=== PATIENT | female | born 1960 | race Caucasian/White ===

== ENCOUNTER 2019-12-04 13:10 | Emergency (ER) | payer OTHER, SELFPAY ==
--- NOTE | 2019-12-04 13:18 | ED.GENADULT ---
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 Patient states it does burn at times to the area when she urinates. Patient states it does not hurt when she is sitting at this time. Denies taking anything for the symptoms. Patient states that her about a year and a half ago and since then she has not been sexually active with any partners. Denies any discharge coming from the area. Patient denies any fevers, body aches or chills. Related Data Home Medications Medication Instructions Recorded Confirmed levothyroxine 12/04/19 Allergies Allergy/AdvReac Type Severity Reaction Status Date / Time No Known Allergies Allergy Unverified 06/21/19 10:42 Review of Systems Review of Systems: Narrative: CONSTITUTIONAL: Denies fever, chills, or sweats. EYES: Denies visual changes, redness, or discharge. ENT: Denies rhinorrhea, congestion, sore throat, or otalgia. CARDIOVASCULAR: Denies chest pain, palpitations, or edema. RESPIRATORY: Denies cough or dyspnea. GASTROINTESTINAL: Denies abdominal pain, nausea, vomiting, or diarrhea. GENITOURINARY: Denies dysuria or hematuria. SKIN: Denies rash or itching. Possible bump on groin x3 to 4 days. MUSCULOSKELETAL: Denies back pain, joint pain, or myalgia. NEUROLOGIC: Denies headache, numbness, or weakness. PSYCHIATRIC: Denies anxiety or depression. PMFSH Social History Social History Smoking status: Never smoker Alcohol intake: current Drinks per week: 1 Comments At the time of my signature I agree with nursing past medical history, surgical, social, and family history. There is no relevant family history pertinent to the presenting complaint. Exam Narrative: Exam Narrative: GENERAL: Well-appearing, well-nourished, and in no acute distress. HEAD: Normocephalic, atraumatic. EYES: PERRLA and EOMI. ENT: Nares clear, no rhinorrhea or epistaxis. Mucous membranes moist. NECK: Supple. No lymphadenopathy CHEST: Clear to auscultation. No respiratory distress. HEART: Regular rate and rhythm. No murmur heard. Normal peripheral pulses. ABDOMEN: Soft, nontender, nondistended, normal active bowel sounds. EXTREMITIES: Normal range of motion. No edema. : Patient has small raised pimple-like flesh-colored cyst noted on the right labia. There is no swelling of the labia. There is no surrounding erythema, no warmth. There is no discharge coming from the area. No tenderness noted on palpation. SKIN: Warm, dry, no rash. NEURO: No focal deficits. Alert and oriented x3. Course Vital Signs Vital signs: Vital Signs Temperature 37.2 C 12/04/19 13:27 Pulse Rate 97 12/04/19 13:27 Respiratory Rate 16 12/04/19 13:27 Blood Pressure 135/61 12/04/19 13:27 Pulse Oximetry 98 12/04/19 13:27 Temperature 37.2 C 12/04/19 13:27 Pulse Rate 97 12/04/19 13:27 Respiratory Rate 16 12/04/19 13:27 Blood Pressure 135/61 12/04/19 13:27 Pulse Oximetry 98 12/04/19 13:27 Vital signs reviewed. Medical Decision Making Differential Diagnosis Differential Diagnosis: Differential diagnosis: Abscess, cellulitis, hidradenitis, laceration, puncture wound. Discussed with patient and sister that this does appear to be just a very small little pimple-like cyst most likely due to a hair follicle which is fairly common. Discussed them that they can have her do some warm Epson salt soaks, put some antibiotic ointment over the area to decrease risk of infection. Discussed with them that they this may pop on its own however it is very im
[2019-12-04 13:27] VITALS: BP 135/61; PULSE 97; RESP 16; TEMP 37.2; O2SAT 98
== END 2019-12-04 13:42 | disposition home or self-care (01) ==
PROVIDERS: Emergency Provider Nurse Practitioner Family; PCP Internal Medicine
DX: L73.8 Other specified follicular disorders (principal); E03.9 Hypothyroidism, unspecified
CPT/HCPCS: 99211; G0463

== ENCOUNTER 2021-08-20 01:16 | Day surgery (SDC) | payer BC, SELFPAY ==
--- NOTE | 2021-07-30 09:52 | PC.NURSE ---
Report to the Outpatient Waiting Room, entrance under the green pavilion located off [facility], at time _0600__ on date ___08/07/21____. OR Time: _729__. - You will be asked a series of questions to screen for COVID 19 for your protection. - A mask is required within the hospital. - No visitors are allowed at this time. Preoperative COVID Testing Requirements: No COVID Test needed if: (proof is required; if not received patient will have Rapid Test prior to entry) - Patient has received COVID Vaccine at least 14 days prior to procedure date or - Patient has positive COVID test result within last 90 days of surgery date. COVID Test needed if above criteria is not met If not COVID vaccinated a COVID test must be conducted within 72 hours of surgery and patient is asked to isolate self from time of testing until procedure. You will go to the [facility] for your COVID testing. The [facility] is located at the corner of [address] [facility]. You will only be called if COVID results are positive and your surgeon may reschedule your elective surgery date. Patients may have clear liquids (water, carbonated beverages, clear teas, apple juice) until 3 hours prior to surgery with a maximum of 20 ounces. - No food from midnight until time of surgery - Infants may have breast milk until 4 hours before surgery, formula 6 hours prior to surgery. - Children will be allowed to drink immediately following surgery. If applicable, please bring a bottle or sippy cup to assist with drinking. Juice, water, soda, and popsicles are readily available. For infants on formula, please bring formula the day of surgery. Pacifiers are allowed. Take the following medications with a SIP of water the morning of surgery: MIRTAZAPINE Medications to discontinue per physician NONE Date to take last dose NONE Please no make-up, nail albanian, hairspray, perfume, deodorant, or body powder the day of surgery. No jewelry (including any body piercings) or valuables the day of surgery, leave them at home. Please take a shower or bath the night before, or the morning of, surgery with an antibacterial soap. Wear comfortable, loose fitting clothing. Children are encouraged to wear pajamas. - Jewelry must be removed prior to entering the operating room. Rings and piercings that are not removed may be cut off. - The hospital will not accept responsibility for valuables. - Please leave all valuables, including medications, at home the day of surgery. If you are going home after surgery, a licensed diesel pile driver operator must drive you home. - NO public transportation without another adult. - We recommend that an adult stay with you for 24 hours following discharge. - We also recommend that you do not drive, make important decision, drink alcoholic beverages, or take any drugs that were not prescribed by your health care provider for at least 24 hours after your discharge time. For Pediatric surgeries, we recommend two adults accompany the child home (only one inside the building at this time). Follow any additional instructions given to you from your surgeon. Telephone instructions given to __SUSU CAMPOS and asked if any additional questions and then verbalized understanding. Patient advised to call surgeon office or pre surgery nurse liaison [phone] if any additional questions.
[2021-08-20] VITALS (7 sets, daily range): BP systolic 124–168; BP diastolic 73–98; PULSE 69–86; RESP 12–20; TEMP 36.2–36.9; O2SAT 99–100
--- NOTE | 2021-08-20 12:10 | P.HP_ITS ---
H&P: HPI History of Present Illness Date/Time: 08/20/21 12:10 Ms. Morales presents today with her sister at the request of Dr. Mustafa for evaluation of a posterior neck mass. She reports the mass being present for a few years , and over the last two months has increased notably in size. The patient reports history of foul smelling drainage from the mass, but denies current drainage or surrounding redness. 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 Gender identity (if verbalized by the patient): Female Meds Home Medications and Allergies Home Medications Medication Instructions Recorded Confirmed Type mirtazapine 15 mg PO DAILY 07/30/21 07/30/21 History Allergies Allergy/AdvReac Type Severity Reaction Status Date / Time lincomycin [From Lincocin] Allergy Rash Verified 06/30/21 13:43 Exam Const: General: cooperative, comfortable and no acute distress Nutritional Appearance: obese Orientation/consciousness: patient oriented x3 Limitations: no limitations HENMT: Head: normal to inspection and normocephalic Neck: Other: posterior neck mass - 6x5 cm, well circumscribed, soft, no s/s active infection Resp: Auscultation: clear to auscultation bilaterally Cardio: Rate: regular rate Rhythm: regular rhythm Assessment and Plan Assessment and plan (1) Palpable mass of neck: Code(s): R22.1 - Localized swelling, mass and lump, neck Status: Acute Assessment and Plan: will setup for excisional biopsy
--- NOTE | 2021-08-20 12:13 | WPDHPUPDATE1 ---
History and Physical Update Update Date/Time: 08/20/21 12:13 History and Physical has been reviewed, including an updated exam of the patient. There are NO changes in the patient's condition. Risks, benefits, and alternatives have been discussed and questions answered. Patient agrees to proceed with procedure.
[2021-08-20] MEDS: LACTATED RINGERS 1,000 ML 30 ML IV CONT (12:20)
--- NOTE | 2021-08-20 13:22 | P.PNAN_ITS ---
Anes - Initial Pre Proc Eval Procedure: Operation Date: 08/20/21 13:30 Proposed Procedures p Excisional Biopsy Left Posterior Neck Mass - Vera Welch MD Date/Time: 08/20/21 13:22 Surgeon: Vera Welch MD Pre Op Diagnosis: neck mass 6x5 cm Patient Data Age: 61 Gender: F Height: 1.63 m Weight: 62 kg Last Vital Signs Temp 36.9 C 08/20/21 11:56 Pulse 77 08/20/21 11:56 Resp 20 08/20/21 11:56 BP 124/78 08/20/21 11:56 Pulse Ox 99 08/20/21 11:56 Allergies Allergy/AdvReac Type Severity Reaction Status Date / Time lincomycin [From Lincocin] Allergy Severe Hives Verified 08/20/21 12:17 Home Medications Medication Instructions Recorded Confirmed Type mirtazapine 15 mg PO DAILY 07/30/21 07/30/21 History Patient hx anesthesia problems: none Family hx anesthesia problems: none Results Review: All pre-operative results and documents have been reviewed as part of the pre-operative evaluation. [facility] Past Medical History Medical History Anxiety Family History Family History Father Esophageal cancer Other Allergy Cancer Diabetes mellitus Heart disease Hypertension Social History Social History Smoking packs per day: 1 Smoking cigarettes per day: 20.0 Years smoked: 20 Smoking pack-years: 20.00 Smoking status: Former smoker Alcohol intake: current Drinks per week: 10 Substance use: never Living arrangements: alone Additional occupation/education comments: [employer] Gender identity (if verbalized by the patient): Female Anes - Eval Final PreProcedure Day of Procedure 08/20/21 13:22 Patient weight: normal Heart: regular rate and rhythm Lungs: decreased breath sounds Airway: Mallampati scale class II Neurological: other (alert) Last oral intake: >/= 8 hours ASA classification: II Emergent: no Anesthetic plan: proceed Anesthesia type and monitoring: general LMA and standard monitoring Results Review: All pre-operative results and documents have been reviewed as part of the pre-operative evaluation. Informed Consent: The patient's anesthetic plan and its attendant risks and benefits were discussed with the patient/family/POA. Questions were solicited and answers provided to the satisfaction of the patient/family/POA.
[2021-08-20] MEDS: ceFAZolin 2 GM/D5W 50 ML 2 GM/50 ML BAG IVPB (13:41)
[2021-08-20] MEDS: BUPIVACAINE/EPINEPHRINE 0.25% 10 ML VIAL 30 ML INFILTRATE (14:00)
--- NOTE | 2021-08-20 14:27 | W.PM.PROC2 ---
Procedure Note - Detailed Date of Procedure 08/20/21 Pre-op Diagnosis posterior neck mass 6x5 cm Post-op Diagnosis Same Procedure Performed Excisional biopsy posterior neck mass measuring 6 x 5 cm Surgeon Vera Welch MD Anesthesia General and Local Indications 61-year-old female with enlarging posterior neck mass over the last few months Findings cystic mass posterior neck measuring 6 x 5 cm Description of Procedure The patient was taken to the operating room and placed in the lateral position. After adequate induction of general anesthesia, the patient was prepped and draped in the normal sterile fashion. A time-out was then done to verify the patient's identity as well as the procedure performed. I made an elliptical incision over the mass taking a piece of dermis over the mass itself. Once through the dermis into the subcutaneous tissue, there was noted to be large cystic mass measuring approximately 6 x 5 cm. This mass was very adherent to the surrounding structures and using blunt and sharp dissection I was able to take down these adhesions. I was then able to remove this mass in full. It will now be sent to pathology for further review. I then copiously irrigated the cavity. No other pathology was noted. Hemostasis was noted within the cavity. The subcutaneous tissue was closed with 3-0 Vicryl suture. The skin was closed with 4-0 Monocryl subcuticular suture. Dermabond was then placed on the wound. The patient tolerated the procedure well and was extubated in the operating room postoperatively. She will be sent to the recovery room in stable condition. Estimated Blood Loss 5 Drains No Packing No Pathology Yes Complications No immediate complications Condition Stable Disposition PACU
== END 2021-08-20 16:35 | disposition home or self-care (01) ==
PROVIDERS: PCP Internal Medicine; Visit Provider Surgery
PROC: (CPT 11426; principal; 2021-08-20 13:30)
DX: L72.0 Epidermal cyst (principal); F41.9 Anxiety disorder, unspecified; Z87.891 Personal history of nicotine dependence
CPT/HCPCS: 11426; 12042; 88304; J0690; J1100; J2250; J2405; J2704; J3010; J7120

== ENCOUNTER 2022-03-22 12:36 | Outpatient (CLI) | payer BC, SELFPAY ==
--- NOTE | 2022-03-22 | ECHO_ITS ---
Patient Info Name: Parul Morales Age: 62 years : 1960 Gender: Female Ht: 64 in Wt: 150 lbs BSA: 1.77 m2 HR: 59 bpm BP: 108 / 71 mmHg Heart Rhythm: Sinus Rhythm Technical Quality: Fair Exam Date: 03/22/2022 1:29 PM Exam Location: [facility] Patient Status: Outpatient Admit Date: 03/22/2022 Staff Ordering Physician: NikunjBishnu MD Telephone Coin Box Collector: Senia Amin RDCS Attending Provider: Nikunj, Bishnu Paul MD Referring Physician: Nikunj HERNANDEZ; Exam Type: CA echo doppler color flow Study Info Indications - CAD OF NOORVIK HEART STABLE ANGINA PECTORIS Complete two-dimensional, color flow and Doppler transthoracic echocardiogram is performed. Summary 1. Left ventricular chamber dimension is normal. 2. Left ventricular systolic function is normal, estimated at 60-65%. 3. There is mild asymmetric septal increased left ventricular wall thickness. 4. The left ventricular diastolic function is normal. 5. There is trace mitral valve regurgitation. 6. There is no aortic valve stenosis. 7. There is mild aortic valve regurgitation. 8. There is trace tricuspid valve regurgitation. 9. No pulmonary hypertension, estimated pulmonary arterial systolic pressure is 24 mmHg. Left Ventricle Left ventricular chamber dimension is normal. Left ventricular systolic function is normal, estimated at 60-65%. There is mild asymmetric septal increased left ventricular wall thickness. The left ventricular diastolic function is normal. Right Ventricle Right ventricular chamber dimension is normal. Right ventricular systolic function is normal. TAPSE 1.7. Left Atria Left atrial chamber dimension is normal. Right Atria Right atrial chamber dimension is normal. Aortic Valve The aortic valve is probable trileaflet. There is no aortic valve stenosis. There is mild aortic valve regurgitation. Pulmonic Valve The pulmonic valve is not well visualized. Mitral Valve The mitral valve has normal leaflets. There is trace mitral valve regurgitation. Tricuspid Valve The tricuspid valve leaflets are normal. There is trace tricuspid valve regurgitation. No pulmonary hypertension, estimated pulmonary arterial systolic pressure is 24 mmHg. Pericardium/Pleural The pericardium appears normal. There is trivial pericardial effusion. Inferior Vena Cava Normal inferior vena cava with >50% collapse upon inspiration consistent with normal right atrial pressure, 5 mmHg. Aorta The aortic root size at the sinus of Valsalva is normal. The prox ascending aorta size is normal. Left Ventricular Outflow Tract Name Value Normal LVOT 2D LVOT Diameter 2.0 cm LVOT Doppler LVOT Peak Gradient 5 mmHg LVOT Mean Gradient 2 mmHg LVOT VTI 21 cm LVOT VTI/AV VTI Ratio 0.8 LVOT Stroke Volume 64 ml LVOT CO 3.3 l/min LVOT CI 1.9 l/min/m2 Pulmonic Valve
== END 2022-03-22 12:37 | disposition home or self-care (01) ==
PROVIDERS: PCP Internal Medicine; Visit Provider Thoracic Surgery (Cardiothoracic Vascular Surgery)
DX: I25.118 Atherosclerotic heart disease of native coronary artery with other forms of angina pectoris (principal); I35.1 Nonrheumatic aortic (valve) insufficiency
CPT/HCPCS: 93306

== ENCOUNTER 2022-11-03 13:30 | Outpatient (RCR) | payer BC, SELFPAY ==
[2022-08-13 11:41] VITALS: PULSE 90
== END 2022-11-09 10:32 | disposition home or self-care (01) ==
LOC: ANHCPREHAB 13:30
PROVIDERS: PCP Internal Medicine; Visit Provider Internal Medicine Cardiovascular Disease
DX: Z95.1 Presence of aortocoronary bypass graft (principal)
CPT/HCPCS: 93798